=== PATIENT | male | born 1985 | race Two or more races ===

== ENCOUNTER 2018-01-05 18:38 | Emergency (ER) | payer BC ==
[~2018-01-05] VITALS: Ht 190.5 cm; Wt 129.3 kg
[2018-01-05 20:34] VITALS: BP 121/76
[2018-01-05] MEDS ORDERED: HYDROcodone-ACET 7.5/325MG TAB PO ONE (21:15)
== END 2018-01-05 21:35 | disposition home or self-care (01) ==
LOC: ER 18:38
DX: S13.4XXA Sprain of ligaments of cervical spine, initial encounter (principal); S40.022A Contusion of left upper arm, initial encounter; V49.49XA Driver injured in collision with other motor vehicles in traffic accident, initial encounter; Y93.89 Activity, other specified; Y99.8 Other external cause status; Y92.410 Unspecified street and highway as the place of occurrence of the external cause
CPT/HCPCS: 71046